=== PATIENT | male | born 1960 ===

== ENCOUNTER 2018-07-11 15:59 | Emergency (ER) | payer OTHER ==
[2018-07-11 16:24] VITALS: PULSE 95; RESP 16; TEMP 98.3
--- NOTE | 2018-07-11 18:31 | ED PDOC ---
HPI: Abdomen Time Seen by Provider: 07/11/18 16:43 Chief Complaint (Nursing): Abdominal Pain Chief Complaint (Provider): Constipation and Abdominal Pain History Per: Patient History/Exam Limitations: no limitations Onset/Duration Of Symptoms: Days (x3) Current Symptoms Are (Timing): Still Present Location Of Pain/Discomfort: LLQ Quality Of Discomfort: "Pain" Associated Symptoms: Constipation. denies: Fever, Chills, Nausea, Vomiting Additional Complaint(s): 57 y/o male with no significant PMHx presents to the ED for evaluation of constipation, onset three days ago. Patient reports of taking FDGuard for dyspepsia and a fleet enema with no relief. Patient reports constipation is a ssociated with mild LLQ pain. Otherwise, patient denies nausea, vomiting, black or bloody stools, sense of a mass in the rectum or rectal pain, urinary symptoms, fever and chills. PMD: No Provider Past Medical History Reviewed: Historical Data, Nursing Documentation, Vital Signs Vital Signs: Last Vital Signs Temp 98.3 F 07/11/18 16:21 Pulse 95 H 07/11/18 16:21 Resp 16 07/11/18 16:21 BP 130/78 07/11/18 16:21 Pulse Ox 97 07/11/18 16:21 - Medical History PMH: No Chronic Diseases - Surgical History Surgical History: No Surg Hx - Family History Family History: States: No Known Family Hx - Home Medications Home Medications: Ambulatory Orders Medication Instructions Recorded Docusate Sodium [Colace] 100 mg PO TID PRN #30 capsule 07/11/18 Polyethylene Glycol 3350 [Miralax] 17 gm PO DAILY PRN #1 bottle 07/11/18 - Allergies Allergies/Adverse Reactions: Allergies Allergy/AdvReac Type Severity Reaction Status Date / Time No Known Allergies Allergy Verified 07/11/18 16:20 Review of Systems ROS Statement: Except As Marked, All Systems Reviewed And Found Negative (as per HPI) Gastrointestinal: Positive for: Abdominal Pain (Mild LLQ), Constipation Physical Exam - Reviewed Nursing Documentation Reviewed: Yes Vital Signs Reviewed: Yes - Physical Exam Appears: Positive for: Non-toxic, No Acute Distress Head Exam: Positive for: ATRAUMATIC, NORMOCEPHALIC Skin: Positive for: Warm, Dry Eye Exam: Positive for: EOMI, PERRL ENT: Negative for: Pharyngeal Erythema, Tonsillar Exudate Neck: Positive for: Painless ROM, Supple Cardiovascular/Chest: Positive for: Regular Rate, Rhythm. Negative for: Murmur Respiratory: Positive for: Normal Breath Sounds. Negative for: Respiratory Distress Gastrointestinal/Abdominal: Positive for: Soft, Tenderness (mild tenderness to deep palpation of the LLQ). Negative for: Mass, Distended, Guarding, Rebound Back: Positive for: Normal Inspection. Negative for: Muscle Spasm Extremity: Positive for: Normal ROM. Negative for: Deformity Lymphatic: Negative for: Adenopathy Neurologic/Psych: Positive for: Alert. Negative for: Motor/Sensory Deficits - Laboratory Results Result Diagrams: 07/11/18 19:20 07/11/18 19:20 - ECG O2 Sat by Pulse Oximetry: 97 (RA) Pulse Ox Interpretation: Normal Medical Decision Making Medical Decision Making: Time: 1745 Impression: Constipation and LLQ pain Differentials include but not limited to constipation, obstruction, diverticulitis or diverticulosis. Plan: -- ED Urine Dipstick -- Obstructive Series XR Time: 1900 Plan: -- CT Abd/Pelvis IV Contrast -- CMP -- Lipase -- Sodium chloride IV 1000 mls/hr -- IV Insertion -- CBC with Differentials CT RESULTS COMMENTS: The liver is of uniform attenuation without mass or defect. There is no intra or extrahepatic biliary ductal dilatation. The spleen is normal. The gallbladder is within normal limits. The pancreas is of normal contour and attenuation characteristics. There is no evidence of adrenal mass. Both kidneys demonstrate prompt and equal nephrograms. The kidneys are normal in size, shape and configuration. There is no evidence of renal or ureteral mass. There is evidence of mild to moderate left hydroureteronephrosis to the point of UVJ. There is a 2 mm calculus noted within the urinary bladder adjacent to the UVJ. This is consistent with recently passed stone. There is a non-obstructing 2 mm calculus noted in the mid pole of the right kidney. Several small subcentimeter bilateral cortical renal cysts present. No evidence for appendicitis. There is no bowel wall thickening. No evidence for small or large bowel obstruction. There is no evidence of abdominal ascites or lymphadenopathy. The prostate gland is mildly enlarged and contains several internal calcifications. There is no evidence of intrinsic or extrinsic bladder mass. There is no pelvic ascites or lymphadenopathy. Images of the lung bases show no evidence of pleural or parenchymal mass. There are no pleural effusions. The bony structures are free of lytic or blastic lesions. IMPRESSION: 1. Mild to moderate left hydroureteronephrosis to the point of UVJ with 2 mm calculus noted within the urinary bladder adjacent to the UVJ. This is consistent with recently passed stone. 2. Non-obstructing 2 mm calculus noted in the mid pole of the right kidney. 3. Several small subcentimeter bilateral cortical renal cysts. 4. The prostate gland is mildly enlarged and contains several internal calcifications. Electronically signed on Jul 11, 2018 8:51:28 PM EST by: Matthew Nielson M.D., ANAILA Certified By [employer] & [employer] Fellowship Trained MRI and CT Specialist 9p Pt Stable on reevaluation. DW pt findings and plan of care. Scribe Attestation: Documented by Linda Arvizu, acting as a scribe for Susana Yen MD. Provider Scribe Attestation: All medical record entries made by the Scribe were at my direction and personally dictated by me. I have reviewed the chart and agree that the record accurately reflects my personal performance of the history, physical exam, medical decision making, and the department course for this patient. I have also personally directed, reviewed, and agree with the discharge instructions and disposition. Disposition - Clinical Impression Clinical Impression: Constipation, Renal calculus Counseled Patient/Family Regarding: Studies Performed, Diagnosis, Need For Followup, Rx Given - Disposition Referrals: [facility] [Outside] ([facility]) Disposition: Discharged/Transfer to Law Enforcement Disposition Time: 21:20 Condition: STABLE Prescriptions: Docusate Sodium [Colace] 100 mg PO TID PRN #30 capsule PRN Reason: Constipation Polyethylene Glycol 3350 [Miralax] 17 gm PO DAILY PRN #1 bottle PRN Reason: Constipation Instructions: Constipation, Adult (DC), Renal Colic (DC) Print Language: WELSH
[2018-07-11] MEDS ORDERED: Sodium Chloride 0.9% 1,000 ML IV STA (19:02)
[2018-07-11 19:30] LABS: BASO # 0.1 K/uL (0.0-0.2); BASO % 0.5 % (0.0-2.0); EOS % 0.1 % (0.0-4.0); HEMOGLOBIN 13.2 g/dL (12.0-18.0); LYMPH # 1.7 K/uL (1.0-4.3); MEAN CELL VOLUME 90.6 fl (80.0-94.0); MEAN CORPUSCULAR HEMOGLOBIN 29.9 pg (27.0-31.0); MEAN PLATELET VOLUME 8.4 fl (7.2-11.7); MONO # 1.1 K/uL (0.0-0.8); MONO % 9.2 % (0.0-10.0); NEUT # 8.8 K/uL (1.8-7.0); NEUT % 75.2 % (50.0-75.0); RBC 4.42 Mil/uL (4.40-5.90); RED CELL DISTRIBUTION WIDTH 13.7 % (11.5-14.5); WHITE BLOOD COUNT 11.6 K/uL (4.8-10.8)
[2018-07-11 19:36] LABS: ALT/SGPT 33 U/L (21-72); AST/SGOT 34 U/L (17-59); BLOOD UREA NITROGEN 27 mg/dl (9-20); CALCIUM 8.7 mg/dL (8.4-10.2); GFR NON-AFRICAN AMERICAN 52; LIPASE 30 U/L (23-300)
[2018-07-11] MEDS ORDERED: Iohexol 300 100 ML IJ ONE (19:41)
[2018-07-11] MEDS ORDERED: Sodium Chloride 0.9% 50 ML IV ONE (19:42)
[2018-07-11 21:57] VITALS: BP 127/74
--- NOTE | 2018-07-12 09:31 | RAD ---
Date of service: 07/11/2018 PROCEDURE: Radiographs of the chest and abdomen (obstructive series) HISTORY: abd pain r/o sbo COMPARISON: No prior. TECHNIQUE: AP radiograph of the chest, with upright and supine radiographs of the abdomen. FINDINGS: CHEST: Lungs: No consolidation. Biapical pleural thickening. Thread-like scar/discoid atelectasis right upper lung zone. Bilateral hyperaeration-COPD emphysema inferred. Cardiovascular: Normal size heart. No pulmonary vascular congestion. There is absence of aortic atherosclerotic calcification on x-ray. Pleura: No pleural fluid. No pneumothorax. Other findings: None. ABDOMEN AND PELVIS: Bowel: Moderate right stool retention. Redundant hepatic-transverse and splenic flexures. Moderate gas in flexures and transverse colon. No obstruction suspect. Free air: None. Bones: Minimal thoraco lumbar spondylosis. Limited visualization of the sacrum due to bowel gas. Bilateral hip arthrosis. Other findings: None. IMPRESSION: No pulmonary infiltrates. Biapical pleural thickening and other chronic like pulmonary changes inferred as above. No evidence of mechanical bowel obstruction.. Redundant colon with right moderate stool retention.
--- NOTE | 2018-07-12 11:35 | CT ---
Date of service: 07/11/2018 PROCEDURE: CT Abdomen and Pelvis with contrast HISTORY: Abdominal pain, possible obstruction COMPARISON: None available. TECHNIQUE: CT scan of the abdomen and pelvis was performed after administration of intravenous contrast. Oral contrast was not administered. Coronal and sagittal reformatted images were obtained. Contrast dose: 80 mL Omnipaque 300 Radiation dose: Total exam DLP = 214.2 mGy-cm. This CT exam was performed using one or more of the following dose reduction techniques: Automated exposure control, adjustment of the mA and/or kV according to patient size, and/or use of iterative reconstruction technique. FINDINGS: LOWER THORAX: The visualized lungs are clear. LIVER: Normal in size with homogeneous enhancement. No gross lesion or ductal dilatation. GALLBLADDER AND BILE DUCTS: Well distended. No calcified gallstones, wall thickening or pericholecystic fluid. PANCREAS: Normal in size with homogeneous enhancement. No gross lesion or ductal dilatation. SPLEEN: Normal in size and appearance. ADRENALS: No discrete nodule. KIDNEYS AND URETERS: Right kidney is normal in size with homogeneous enhancement. There is a 5 mm nonobstructing stone in the interpolar region of the right kidney. There is a 3 mm stone in the urinary bladder distal to the left UV junction. There is moderate left hydronephrosis, mild diffuse dilatation of the left ureteral, edema and enlargement of the left and perinephric fat stranding. The there are few simple cysts in the kidneys, the largest in the left lower pole measures 11 mm. VASCULATURE: No aortic aneurysm. BOWEL: There is mild dilatation of the proximal small bowel loops.. The colon is grossly normal in appearance. No bowel wall thickening or obstruction. APPENDIX: Normal appendix. PERITONEUM: No free fluid. No free air. LYMPH NODES: No enlarged lymph nodes. BLADDER: The urinary bladder is decompressed. REPRODUCTIVE: Mild enlargement of the prostate gland. BONES: No acute fracture. Within normal limits for the patient's age. OTHER FINDINGS: None. IMPRESSION: 1. Recent passage of 3 mm left ureteral stone with changes are hydroureteronephrosis, edema and enlargement of the left kidney and perinephric inflammatory fat stranding. 2. 3 mm urinary bladder stone distal to the left UV junction. 3. Mild enlargement of the prostate gland. Please correlate with PSA levels. A preliminary report was provided by [employer].
[2018-07-15 21:39] VITALS: O2SAT 97
== END 2018-07-11 21:57 | disposition home or self-care (01) ==
LOC: H.ER 15:59
DX: K59.00 Constipation, unspecified (principal); N13.2 Hydronephrosis with renal and ureteral calculous obstruction; N28.1 Cyst of kidney, acquired; N40.0 Benign prostatic hyperplasia without lower urinary tract symptoms; Z79.899 Other long term (current) drug therapy; N21.0 Calculus in bladder
CPT/HCPCS: 74022; 74177; 80053; 83690; 85025; 96360; 99283; J7030; Q9967

== ENCOUNTER 2018-07-22 06:48 | Emergency (ER) | payer OTHER ==
--- NOTE | 2018-07-22 07:58 | ED PDOC ---
HPI: Influenza Time Seen by Provider: 07/22/18 07:17 Chief Complaint: Cough, Cold, Congestion Chief Complaint (Provider): Flu like symptoms History Per: Patient Exam Limitations: no limitations Onset/Duration Of Symptoms: Other (x1 week) Symptoms include: fever, headache, cough, nasal congestion, rash. denies: vomiting, diarrhea, chest pain Additional complaint(s):: 57 year old male presents to the ED with flu like symptoms for one week. Patient reports fever, chills, headache, productive cough, congestion, and runny nose. He reports for the last 2-3 days, he developed a itchy rash throughout the body. He states he had hives on his back and now a red rash throughout his body. Patient indicates he started using a new soap recently but denies any new medications. Denies chest pain, vomiting, diarrhea, recent travel, recent antibiotic use, or sick contacts. PMD: none Past Medical History Reviewed: Historical Data, Nursing Documentation, Vital Signs Vital Signs: Last Vital Signs Temp 98.2 F 07/22/18 07:29 Pulse 96 H 07/22/18 07:29 Resp 18 07/22/18 07:29 BP 99/69 L 07/22/18 07:29 Pulse Ox 97 07/22/18 07:29 - Medical History PMH: Kidney Stones Denies: Chronic Kidney Disease - Surgical History Surgical History: No Surg Hx - Family History Family History: States: Unknown Family Hx - Home Medications Home Medications: Ambulatory Orders Medication Instructions Recorded Docusate Sodium [Colace] 100 mg PO TID PRN #30 capsule 07/11/18 Polyethylene Glycol 3350 [Miralax] 17 gm PO DAILY PRN #1 bottle 07/11/18 Hydroxyzine HCl 25 mg PO TID PRN #20 tablet 07/22/18 predniSONE [predniSONE Tab] 60 mg PO DAILY #4 tab 07/22/18 - Allergies Allergies/Adverse Reactions: Allergies Allergy/AdvReac Type Severity Reaction Status Date / Time No Known Allergies Allergy Verified 07/11/18 16:20 Review of Systems ROS Statement: Except As Marked, All Systems Reviewed And Found Negative Constitutional: Positive for: Fever, Chills ENT: Positive for: Nose Discharge (Runny nose), Nose Congestion Cardiovascular: Negative for: Chest Pain Respiratory: Positive for: Cough (productive) Gastrointestinal: Negative for: Vomiting, Diarrhea Skin: Positive for: Rash (itchy) Neurological: Positive for: Headache Physical Exam - Reviewed Nursing Documentation Reviewed: Yes Vital Signs Reviewed: Yes - Physical Exam Appears: Positive for: No Acute Distress Head Exam: Positive for: ATRAUMATIC, NORMAL INSPECTION (no swelling), NORMOCEPHALIC Skin: Positive for: Rash (multiple areas, including extremities and trunk, appears to be macular and other areas with erythema and eczematous rash; no vesicles or pustules) Eye Exam: Positive for: Normal appearance ENT: Positive for: Normal ENT Inspection. Negative for: Pharyngeal Erythema, Tonsillar Exudate Neck: Positive for: Normal (no lymphadenopathy), Painless ROM Cardiovascular/Chest: Positive for: Regular Rate, Rhythm Respiratory: Positive for: Normal Breath Sounds. Negative for: Wheezing, Respiratory Distress Extremity: Positive for: Normal ROM Neurologic/Psych: Positive for: Alert, Oriented Medical Decision Making Medical Decision Making: Initial Impression: Flu like symptoms and rash Differential includes - Flu like symptoms: influenza, pneumonia, and viral syndrome; rash: allergic reaction contributed to the new soap; appears to be urticaria with eczematous component. Initial Plan: --Chest X-ray --Benadryl 25mg PO --Pepcid 20mg PO --Prednisone 60mg PO --Influenza A B stat 09:51 Negative flu and no acute findings on chest X-ray. VS reviewed. Patient is petite and asymptomatic, likely baseline hypotension. Scribe Attestation: Documented by Efren Hebert acting as a scribe for Mily Wilson MD. Provider Scribe Attestation: All medical record entries made by the Scribe were at my direction and personally dictated by me. I have reviewed the chart and agree that the record accurately reflects my personal performance of the history, physical exam, medical decision making, and the department course for this patient. I have also personally directed, reviewed, and agree with the discharge instructions and disposition. - ECG O2 Sat by Pulse Oximetry: 97 - Progress Re-evaluation Time: 10:04 (Denies any complains) Condition: Re-examined, Improved Disposition - Clinical Impression Clinical Impression: Rash, Flu-like symptoms - Patient ED Disposition Is Patient to be Admitted: No Doctor Will See Patient In The: Office Counseled Patient/Family Regarding: Studies Performed, Diagnosis, Need For Followup - Disposition Referrals: [facility] [Outside] Disposition: Routine/Home Disposition Time: 10:05 Condition: GOOD Additional Instructions: HAI TOLENTINO, thank you for letting us take care of you today. Your provider was Mily Wilson MD and you were treated for POSS FEVER, RUNNY NOSE. The emergency medical care you received today was directed at your acute symptoms. If you were prescribed any medication, please fill it and take as directed. It may take several days for your symptoms to resolve. Return to the Emergency Department if your symptoms worsen, do not improve, or if you have any other problems. Please contact your doctor or call one of the physicians/clinics you have been referred to that are listed on the Patient Visit Information form that is included in your discharge packet. Bring any paperwork you were given at discharge with you along with any medications you are taking to your follow up visit. Our treatment cannot replace ongoing medical care by a primary care provider outside of the emergency department. Thank you for allowing the [facility] team to be part of your care today. If you had an X-Ray or CT scan: A Radiologist will review the ED reading if any change in treatment is needed we will contact you. If you had a blood, urine, or wound culture: It will take several days for the results, if any change in treatment is needed we will contact you. If you had an STI test: It will take 48 hours for the results. Please call after 1 week if you have not heard back. Prescriptions: Hydroxyzine HCl 25 mg PO TID PRN #20 tablet PRN Reason: Rash predniSONE [predniSONE Tab] 60 mg PO DAILY #4 tab Instructions: Skin Rash, Viral Syndrome (DC) Print Language: MONTSERRATIAN
[2018-07-22 10:36] VITALS: BP 94/57; PULSE 76; RESP 16; TEMP 99
[2018-07-22 10:37] VITALS: O2SAT 97
--- NOTE | 2018-07-23 10:48 | RAD ---
Date of service: 07/22/2018 HISTORY: cough fever COMPARISON: No prior. TECHNIQUE: Chest PA and lateral FINDINGS: LUNGS: Hyperinflation with emphysematous changes. Right apical pleural parenchymal fibro nodular changes suggested. Cannot exclude a mass. PLEURA: No significant pleural effusion identified. No pneumothorax apparent. CARDIOVASCULAR: No aortic atherosclerotic calcification present. Normal cardiac size. No pulmonary vascular congestion. OSSEOUS STRUCTURES: No significant abnormalities. VISUALIZED UPPER ABDOMEN: Normal. OTHER FINDINGS: None. IMPRESSION: Hyperinflation with emphysematous changes. Right apical pleural parenchymal fibro nodular changes suggested. Cannot exclude a mass.
== END 2018-07-22 10:40 | disposition home or self-care (01) ==
LOC: H.ER 06:48
DX: J11.1 Influenza due to unidentified influenza virus with other respiratory manifestations (principal); R21 Rash and other nonspecific skin eruption